=== PATIENT | male | born 1940 | race Caucasian/White ===

== ENCOUNTER 2018-01-30 11:22 | Day surgery (SDC) | payer MEDICARE ==
[~2018-01-30] VITALS: Ht 175.3 cm; Wt 86.8 kg
[~2018-01-30 11:22] MED LIST: ASPI81CH; ASPI81EC; ASTEPRO205.5 MCG/; ATOR10; Advair Hfa 230-12 GM; Bystolic20 MG; CHOL10002; CONDROITIN; Coq-10100 MG; Diovan160 MG; FAMO20; LEVSOD100; OMEP20ER; ROPI1; THYROID; VITAMIN
== END 2018-01-30 13:24 | disposition home or self-care (01) ==
LOC: ORSCSDS 11:22
PROVIDERS: Internal Medicine Gastroenterology
PROC: 0DBP8ZX Excision of Rectum, Via Natural or Artificial Opening Endoscopic, Diagnostic (ICD-10-PCS; principal; 2018-01-30 13:00)
PROC: 0DBN8ZX Excision of Sigmoid Colon, Via Natural or Artificial Opening Endoscopic, Diagnostic (ICD-10-PCS; principal; 2018-01-30 13:00)
PROC: 0DBL8ZX Excision of Transverse Colon, Via Natural or Artificial Opening Endoscopic, Diagnostic (ICD-10-PCS; principal; 2018-01-30 13:00)
PROC: 0DBH8ZX Excision of Cecum, Via Natural or Artificial Opening Endoscopic, Diagnostic (ICD-10-PCS; principal; 2018-01-30 13:00)
DX: Z12.11 Encounter for screening for malignant neoplasm of colon (principal); D12.0 Benign neoplasm of cecum; D12.3 Benign neoplasm of transverse colon; K62.1 Rectal polyp; K57.30 Diverticulosis of large intestine without perforation or abscess without bleeding; K64.8 Other hemorrhoids; Z86.010 Personal history of colon polyps; G47.33 Obstructive sleep apnea (adult) (pediatric); E03.9 Hypothyroidism, unspecified; E78.5 Hyperlipidemia, unspecified; I10 Essential (primary) hypertension; Z87.891 Personal history of nicotine dependence; Z79.82 Long term (current) use of aspirin; Z79.899 Other long term (current) drug therapy
CPT/HCPCS: 88305; J7120

== ENCOUNTER → 2019-07-10 | Outpatient (CLI) | payer MEDICARE | END | disposition home or self-care (01) | LOC: LAB SHORT 07:55 → LAB 07:55 | DX: R82.998 Other abnormal findings in urine (principal) | CPT/HCPCS: 87077; 87086; 87186 ==

== ENCOUNTER → 2023-05-01 | Outpatient (CLI) | payer MEDICARE ==
[~2023-05-01] MED LIST changes: +ALLO100; +LATA.005SO; +LOSA25; +NEBI5
[2023-05-01 16:40] LABS: Source, Urine Clean Catch
[2023-05-02 10:41] LABS: Appearance, Urine Hazy (Clear); Bilirubin, Urine Neg (Neg); Blood, Urine 1+ (Neg); Color, Urine Yellow (P-Yellow); Glucose Qualitative, Urine Neg (Neg); Ketones, Urine Neg (Neg); Leukocyte Esterase, Urine 3+ (Neg); Nitrite, Urine Pos (Neg); Protein, Urine 1+ (Neg); Urobilinogen, Urine NORM (Normal)
[2023-05-02 10:53] LABS: White Blood Cells, Urine 25-50 /hpf (0-5)
[2023-05-02 10:54] LABS: Bacteria Many /hpf; Squamous Epithelial Cells Rare /hpf (Few)
== END | disposition home or self-care (01) ==
LOC: LAB 16:38 → LAB SHORT 16:38
PROVIDERS: Hospitalist
DX: R30.0 Dysuria (principal)
CPT/HCPCS: 81001; 87077; 87086; 87186

== ENCOUNTER 2023-08-16 18:07 | Observation (INO) | payer MEDICARE ==
[~2023-08-16] VITALS: Ht 177.8 cm; Wt 92.5 kg
[~2023-08-16 18:07] MED LIST changes: -ALLO100; +ALLO100 PO; -ASPI81CH; +ASPI81CH PO; -ATOR10; +ATOR10 PO; -CHOL10002; -Coq-10100 MG; +Coq-10100 MG PO; -LEVSOD100; +LEVSOD100 PO; -LOSA25; +LOSA25 PO; -NEBI5; +NEBI5 PO; +OMEP20ER PO; -ROPI1; +ROPI1 PO; +VITAMIN D310 MC4 PO
[2023-08-16 21:35] VITALS: BP 161/60
[2023-08-16] MEDS ORDERED: ACET325 PO (21:50)
[2023-08-16] MEDS ORDERED: HYDCHL25 PO (22:22)
[2023-08-17 03:14] VITALS: BP 133/75
--- NOTE | 2023-08-17 03:56 | NUR ---
SHIFT SUMMARY. PT ARRIVED ON UNIT AT ABOUT 2130 LAST NIGHT. AOX4, PLEASANT, COOPERATIVE WITH CARE. INDEPENDENT IN ROOM. SATS WELL ON ROOM AIR WHILE AWAKE, WEARS BIPAP @ NIGHT AT BASELINE. BIPAP ORDER ENTERED PER ORDER FROM RESIDENT AND HAS BEEN SET UP BY RT, PT HAS BEEN USING WHILE SLEEPING THROUGH NIGHT. NO PAIN REPORTED SINCE ARRIVAL. SKIN ASSESSMENT UNREMARKABLE. VS STABLE. MEDICATION RECONCILIATION MOSTLY COMPLETED ON ADMISSION. NEGLECTED TO CONFIRM DOSAGES OF DIFFERENT MEDICATIONS. PT NOW REPORTS THE HOME MEDICATION LIST WAS SENT HOME WITH SO DOSAGES WILL NEED TO BE CONFIRMED WITH LIST WHEN IT IS AVAILABLE AGAIN. 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 SINCE ARRIVAL, PT HAS BEEN ABLE TO SLEEP WELL AND CALLS APPROPRIATELY FOR ASSISTANCE. REGULAR DIET. BED LOCKED IN LOWEST POSITION. CALL LIGHT LEFT WITHIN REACH. CONTINUING TO MONITOR.
[2023-08-17 03:59] LABS: BASOPHILS ABSOLUTE AUTO 0.07 K/mm3 (0.00-0.23); BASOPHILS PERCENT AUTO 1 % (0-2); EOSINOPHILS ABSOLUTE AUTO 0.16 K/mm3 (0.00-0.68); EOSINOPHILS PERCENT AUTO 2 % (0-6); Hematocrit 39.7 % (37.0-53.0); Hemoglobin 13.3 g/dL (13.5-17.5); IMMATURE GRAN ABSOLUTE AUTO 0.02 K/mm3 (0.00-0.10); IMMATURE GRAN PERCENT AUTO 0 % (0-1); LYMPHOCYTES ABSOLUTE AUTO 2.33 K/mm3 (0.84-5.20); LYMPHOCYTES PERCENT AUTO 32 % (21-46); MONOCYTES ABSOLUTE AUTO 0.91 K/mm3 (0.16-1.47); MONOCYTES PERCENT AUTO 13 % (4-13); Mean Corpuscular HGB 30.9 pg (26.0-34.0); Mean Corpuscular HGB Conc 33.5 g/dL (31.5-36.5); Mean Corpuscular Volume 92 fL (80-100); Mean Platelet Volume 11.1 fL (9.1-12.4); NEUTROPHILS ABSOLUTE AUTO 3.79 K/mm3 (1.96-9.15); NEUTROPHILS PERCENT AUTO 52 % (41-73); Platelet Count 247 K/mm3 (150-400); RDW Coefficient Variation 12.5 % (11.7-14.2); RDW Standard Deviation 42.6 fL (35.1-46.3); Red Blood Cell Count 4.31 M/mm3 (4.30-5.90); White Blood Cell Count 7.28 K/mm3 (4.00-11.30)
[2023-08-17 04:13] LABS: International Normalized Ratio 1.08; Prothrombin Time Results 11.3 Sec (9.7-11.5)
[2023-08-17 04:21] LABS: Albumin, Blood 3.1 g/dL (3.4-5.0); Albumin/Globulin Ratio 0.9 (0.8-1.8); Bilirubin, Total 0.9 mg/dL (0.1-1.0); Bun/Creatinine Ratio 19.4 (12.0-20.0); Calcium, Blood 8.8 mg/dL (8.5-10.1); Creatinine, Blood 1.03 mg/dL (0.60-1.20); Globulin, Blood 3.4 g/dL (2.2-4.0); Potassium, Blood 3.6 mmol/L (3.5-5.5); Total Protein, Blood 6.5 g/dL (6.4-8.2)
--- NOTE | 2023-08-17 09:20 | NUR ---
AM NOTE PT IS ALERT AND ORIENTED X 4. PT WALKED AROUND THE UNIT AND SPO2 MAINTAINED AT 98-99% VIA ROOM AIR. PT DENIED FEELING SOB, HE DENIES FEELINGS OF CHEST PAIN/PRESSURE. BP IS 167/66 W/ MAP OF (94).
[2023-08-17 09:25] VITALS: BP 167/66
[2023-08-17] MEDS ORDERED: ELIQUIS5 M2 PO (11:13)
--- NOTE | 2023-08-17 12:04 | NUR ---
DISCHARGE NOTE PT WAS ALERT AND ORIENTED X 4, VSS. HE DENIED FEELINGS OF CHEST PAIN/PRESSURE, SOB, NAUSEA/VOMITTING. HE WAS INDEPENDENT IN THE ROOM. THIS RN DISCUSSED PT ON DISCHARGE INSTRUCTIONS INCLUDING FOLLOW UP APPOINTMENTS AND MEDICATIONS TO TAKE. THE PT'S WAS ALSO AT BEDSIDE DURING DISCHARGE INSTRUCTIONS. THIS RN REMOVED IV IN R AC. PT LEFT PCU AT APPROX. 1155 ESCORTED BY THIS RN AND WAS STABLE UPON DISCHARGE.
== END 2023-08-17 12:08 | disposition home or self-care (01) ==
LOC: ER 18:07 → PCU 18:08
PROVIDERS: ADMIT Internal Medicine
DX: I26.92 Saddle embolus of pulmonary artery without acute cor pulmonale (principal); E03.9 Hypothyroidism, unspecified; G47.33 Obstructive sleep apnea (adult) (pediatric); E78.5 Hyperlipidemia, unspecified; I10 Essential (primary) hypertension; K21.9 Gastro-esophageal reflux disease without esophagitis; Z86.73 Personal history of transient ischemic attack (TIA), and cerebral infarction without residual deficits; M10.9 Gout, unspecified
CPT/HCPCS: 36415; 71260; 80053; 84484; 85025; 85610; 93306; 93970; 94660; 94761; 94762; 99285-25; A9270; J1650; Q9967

== ENCOUNTER 2025-08-03 23:51 | Emergency (ER) | payer MEDICARE ==
[~2025-08-03] VITALS: Ht 175.3 cm; Wt 88.5 kg
[~2025-08-03 23:51] MED LIST changes: +ACET325 PO; +ELIQUIS5 M2 PO; +HYDCHL25 PO
[2025-08-04 00:23] LABS: BASOPHILS ABSOLUTE AUTO 0.07 K/mm3 (0.00-0.23); BASOPHILS PERCENT AUTO 1 % (0-2); EOSINOPHILS ABSOLUTE AUTO 0.17 K/mm3 (0.00-0.68); EOSINOPHILS PERCENT AUTO 2 % (0-6); Hematocrit 43.0 % (37.0-53.0); Hemoglobin 14.5 g/dL (13.5-17.5); IMMATURE GRAN ABSOLUTE AUTO 0.01 K/mm3 (0.00-0.10); IMMATURE GRAN PERCENT AUTO 0 % (0-1); LYMPHOCYTES ABSOLUTE AUTO 2.43 K/mm3 (0.84-5.20); LYMPHOCYTES PERCENT AUTO 28 % (21-46); MONOCYTES ABSOLUTE AUTO 0.79 K/mm3 (0.16-1.47); MONOCYTES PERCENT AUTO 9 % (4-13); Mean Corpuscular HGB Conc 33.7 g/dL (31.5-36.5); Mean Corpuscular Volume 93 fL (80-100); NEUTROPHILS ABSOLUTE AUTO 5.21 K/mm3 (1.96-9.15); NEUTROPHILS PERCENT AUTO 60 % (41-73); NRBC ABSOLUTE 0.00 K/mm3 (0.00-0.02); NRBC Auto 0.0 /100 WBC (0.0-0.2); Platelet Count 276 K/mm3 (150-400); RDW Coefficient Variation 12.5 % (11.7-14.2); RDW Standard Deviation 42.8 fL (35.1-46.3)
[2025-08-04] MEDS ORDERED: Lasix20 MG PO (00:23)
[2025-08-04] MEDS ORDERED: IRBE150 (00:24)
[2025-08-04 01:03] LABS: Alanine Aminotransfer (ALT/SGP 24.0 U/L (12-78); Albumin, Blood 3.2 g/dL (3.4-5.0); Albumin/Globulin Ratio 0.8 (0.8-1.8); Anion Gap 11.0 mmol/L (3-11); Aspartate Aminotrans (AST/SGOT 21.0 U/L (12-37); Bilirubin, Total 0.8 mg/dL (0.1-1.0); Blood Urea Nitrogen 40.0 mg/dL (8-24); CO2, Blood 24.0 mmol/L (21-32); Calcium, Blood 9.0 mg/dL (8.5-10.1); Chloride, Blood 108.0 mmol/L (98-108); Creatinine, Blood 1.32 mg/dL (0.60-1.20); Globulin, Blood 3.9 g/dL (2.2-4.0); Glucose, Blood 131.0 mg/dL (70-99); Magnesium, Blood 2.0 mg/dL (1.6-2.4); Potassium, Blood 3.8 mmol/L (3.5-5.5); Sodium, Blood 139.0 mmol/L (136-145); Thyroid Stimulating Hormone 7.59 uIU/mL (0.360-4.800); Total Protein, Blood 7.1 g/dL (6.4-8.2)
[2025-08-04 01:15] VITALS: BP 118/76
== END 2025-08-04 01:15 | disposition home or self-care (01) ==
LOC: ER 23:51
PROVIDERS: Student in an Organized Health Care Education/Training Program
DX: R00.2 Palpitations (principal); E03.9 Hypothyroidism, unspecified; I10 Essential (primary) hypertension; E78.5 Hyperlipidemia, unspecified; K21.9 Gastro-esophageal reflux disease without esophagitis; Z79.01 Long term (current) use of anticoagulants; Z86.79 Personal history of other diseases of the circulatory system; Z79.899 Other long term (current) drug therapy
CPT/HCPCS: 80053; 83735; 84439; 84443; 85025; 93005; 93010; 99285-25; J7120